=== PATIENT | female | born 1990 | race Two or more races ===

== ENCOUNTER → 2017-04-26 | Outpatient (CLI) | payer OTHER | LOC: M WUC 13:47 | DX: R05 Cough (principal); R91.8 Other nonspecific abnormal finding of lung field ==

== ENCOUNTER → 2017-05-02 | Outpatient (CLI) | payer OTHER | LOC: M WUC 09:48 | DX: J11.00 Influenza due to unidentified influenza virus with unspecified type of pneumonia (principal) ==